=== PATIENT | female | born 1980 | race Caucasian/White ===

== ENCOUNTER 2019-10-25 07:36 | Emergency (ER) | payer OTHER ==
[~2019-10-25] VITALS: Ht 157.5 cm; Wt 68.0 kg
--- NOTE | 2019-10-25 07:48 | NUR ---
SAE MARTINEZ 86 FROM CLINIC, PER MANAGER PROPERTY "WAS ACTING INAPPROPRIATE, SOME KIND OF DRUG". TO ER BED 12, PATIENT NOTED ACTING BIZARRE, WORD SALAD AND FLIGHT OF IDEAS, SPEAKS [place] AND [place] AT THE SAME TIME, WANDED BY SECURITY. HOOKED TO MONITOR, AWARE OF HER NAME AND WHERE SHE IS. DR MARSHALL AT BEDSIDE.
[2019-10-25] MEDS ORDERED: LORAZEPAM INJ 2 MG/ML VIAL ONE (07:59)
[2019-10-25] MEDS ORDERED: diphenhydrAMINE HCL 50 MG/ML VIAL ONE (07:59)
[2019-10-25] MEDS ORDERED: OLANZAPINE 10 MG VIAL IM ONE ×2 (07:59→08:00)
[2019-10-25] MEDS ORDERED: diphenhydrAMINE HCL 50 MG/ML VIAL IM ONE (08:00)
[2019-10-25] MEDS ORDERED: LORAZEPAM INJ 2 MG/ML VIAL IM ONE (08:00)
--- NOTE | 2019-10-25 08:39 | NUR ---
KHUSHBU CASTELLANOS) AT BEDSIDE TO FOLLOW UP W TAMIR.
--- NOTE | 2019-10-25 08:42 | NUR ---
EMBEDDED SOFTWARE TEST ENGINEER AT BEDSIDE
[2019-10-25 09:03] LABS: BASOPHILS # (AUTO) 0.1 /CMM (0.0-0.2); BASOPHILS % (AUTO) 0.7 % (0.0-2.0); EOSINOPHILS % (AUTO) 0.2 % (0.0-6.0); HEMATOCRIT 40 % (33-45); HEMOGLOBIN 13.5 g/dL (11.5-14.8); LYMPHOCYTES # (AUTO) 2.6 /CMM (0.8-4.8); LYMPHOCYTES % (AUTO) 20.9 % (20.0-44.0); MEAN CORPUSCULAR HGB CONC 34 g/dl (31.0-36.0); MEAN CORPUSCULAR VOLUME 90 fL (82-100); MONOCYTES # (AUTO) 0.7 /CMM (0.1-1.30); NEUTROPHILS # (AUTO) 8.8 /CMM (1.8-8.9); NEUTROPHILS % (AUTO) 72.2 % (43.0-81.0); PLATELET COUNT (AUTO) 229 /CMM (150-450); RED BLOOD CELL COUNT(AUTO) 4.42 MIL/uL (4.0-5.2); WHITE BLOOD COUNT (AUTO) 12.3 K/uL (4.3-11.0)
[2019-10-25 09:08] LABS: CARBON DIOXIDE 25 mmol/L (21-32); CHLORIDE 98 mmol/L (98-107); CREATININE 0.9 mg/dL (0.6-1.3); GLUCOSE 104 mg/dL (74-106); POTASSIUM 3.2 mmol/L (3.5-5.1); SODIUM SERUM 136 mmol/L (136-145); UREA NITROGEN, BLOOD 22 mg/dL (7-18)
--- NOTE | 2019-10-25 09:12 | NUR ---
BREAKFAST TRAY PROVIDED, PATIENT TOLERATED PO WELL.
[2019-10-25 09:13] LABS: ALANINE AMINOTRANSFERASE 19 U/L (12-78); ALBUMIN 4.6 g/dL (3.4-5.0); ALCOHOL, BLOOD < 3 mg/dL (0-0); ALKALINE PHOSPHATASE 81 U/L (46-116); ASPARTATE AMINOTRANSFERASE 29 U/L (15-37); BILIRUBIN,DIRECT 0.3 mg/dL (0.0-0.2); BILIRUBIN,TOTAL 1.2 mg/dL (0.2-1.0); TOTAL PROTEIN, SERUM 8.5 g/dL (6.4-8.2)
[2019-10-25 09:14] LABS: ACETAMINOPHEN 0 ug/ml (10-30); SALICYLATE 0.6 mg/dL (2.8-20.0)
--- NOTE | 2019-10-25 12:32 | NUR ---
provided w lunch tray, tolerated po well.
[2019-10-25 13:24] LABS: APPEARANCE,URINE Cloudy (CLEAR); BILIRUBIN,URINE SMALL (NEGATIVE); BLOOD, URINE Small Ery/uL (NEGATIVE); COLOR,URINE Yellow (YELLOW); KETONES,URINE 40 (NEGATIVE); LEUKOCYTE ESTERASE ,URINE Small (NEGATIVE); NITRITE, URINE Negative (NEGATIVE); PROTEIN,URINE 30 mg/dl (NEGATIVE); UGLUCOSE Negative (NEGATIVE); UROBILINOGEN,URINE 0.2 EU/dL (0.2)
[2019-10-25 13:32] LABS: BACTERIA,URINE Few /HPF (None Seen); SQUAMOUS EPITHELIAL CELL,UR Few /HPF (None Seen)
--- NOTE | 2019-10-25 13:49 | NUR ---
CALLED RYAN [id number] WILL COME TO ER TO SPEAK WITH PT.
--- NOTE | 2019-10-25 14:21 | NUR ---
technical services consultant consult requested by ER. Pt is a 39 year old White female who was admitted to the [facility] ER for overdose. Pt was laying down in her bed and was oriented x 3 (person, place, and situation). Pt states she abused opioids for 10 years and has been on methadone for the past 7 years. Pt states she used methadone last night as well as this morning. Pt has been in a substance abuse treatment center in the past but is currently not interested in being referred. Pt states she currently receives treatment from a methadone clinic located in [place], [place]. Pt denies being homeless. 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 Pt denies alcohol and cigarette use. Pt is ambulatory. Pt denies a history of psychiatric diagnosis. Pt denies auditory and visual hallucinations. Pt denies suicidal and homicidal ideation. Pt states she is single and has no children. Pt states her closest next of kin is her father, Yobani Muñiz [[phone]] and he lives in [place]. SHARIFA encouraged pt to accept a substance abuse treatment referral, but pt again declined. SHARIFA provided the following referrals in case pts motivation changes in the future. SHARIFA provided the following substance abuse treatment program referrals to pt: [facility] [address] [place] [address]; , [facility] [address] [place] [address]; ; and [facility] ([phone]). Pt states she plans to take the bus back to her home after discharge and declined additional clothing. Pt will require a TAP card at discharge. No other services needed at this time. SW is available if needed.
--- NOTE | 2019-10-25 14:59 | NUR ---
Patient discharged to home in stable condition. Written and verbal after care instructions given. Patient verbalizes understanding of instruction. All belongings returned to the patient including $346.
[2019-10-25 15:01] VITALS: BP 112/58
== END 2019-10-25 15:02 | disposition home or self-care (01) ==
LOC: ER 07:36
DX: F23 Brief psychotic disorder (principal); F15.10 Other stimulant abuse, uncomplicated; E87.6 Hypokalemia; D72.829 Elevated white blood cell count, unspecified; Z90.89 Acquired absence of other organs; Z90.49 Acquired absence of other specified parts of digestive tract; Z98.890 Other specified postprocedural states; Z88.8 Allergy status to other drugs, medicaments and biological substances; Z59.0 Homelessness; Z87.442 Personal history of urinary calculi
CPT/HCPCS: 36415; 80048; 80076; 80305; 80307; 80329; 81001; 85025; 96372 ×2; 99285; G0480; J1200; J2060; J3490; 81000-TC